=== PATIENT | female | born 1940 | race Caucasian/White ===

== ENCOUNTER → 2016-04-06 | Outpatient (REF) | payer OTHER ==
[2016-04-06 11:38] LABS: MEAN CORPUSCULAR HEMOGLOBIN 31.9 pg (27.0-33.0); MEAN CORPUSCULAR HGB CONC 34.8 g/dl (32.0-36.5); MEAN CORPUSCULAR VOLUME 91.9 fl (80.0-96.0); RED CELL DISTRIBUTION WIDTH 12.6 % (11.5-14.5); WHITE BLOOD COUNT 5.5 K/mm3 (4.0-10.0)
[2016-04-06 11:47] LABS: VITAMIN B12 LEVEL 385 PG/ML (247-911)
[2016-04-06 12:06] LABS: ALBUMIN 3.9 GM/DL (3.2-5.2); ALBUMIN/GLOBULIN RATIO 1.63 (1.00-1.93); ALKALINE PHOSPHATASE 57 U/L (45-117); ALT/SGPT 16 U/L (12-78); ANION GAP 7 MEQ/L (8-16); AST/SGOT 15 U/L (15-37); BILIRUBIN,TOTAL 0.5 MG/DL (0.2-1.0); BLOOD UREA NITROGEN 13 MG/DL (7-18); CALCIUM LEVEL 8.6 MG/DL (8.8-10.2); CARBON DIOXIDE LEVEL 28 MEQ/L (21-32); CHLORIDE LEVEL 108 MEQ/L (98-107); CHOLESTEROL LEVEL 228 MG/DL (<200); CREATININE FOR GFR 0.72 MG/DL (0.55-1.02); GLOMERULAR FILTRATION RATE > 60.0 (>39); GLUCOSE, FASTING 103 MG/DL (83-110); POTASSIUM SERUM 3.8 MEQ/L (3.5-5.1); SODIUM LEVEL 143 MEQ/L (136-145); TOTAL PROTEIN 6.3 GM/DL (6.4-8.2); TRIGLYCERIDES LEVEL 97 MG/DL (<150)
== END ==
LOC: M LABDRAWC 11:19
PROVIDERS: ATTEND Family Medicine
DX: E55.9 Vitamin D deficiency, unspecified (principal); E53.8 Deficiency of other specified B group vitamins; Z79.899 Other long term (current) drug therapy

== ENCOUNTER 2016-08-11 19:32 | Emergency (ER) | payer OTHER ==
[~2016-08-11] VITALS: Ht 160 cm; Wt 61.3 kg
[2016-08-11 19:33] VITALS: BP_DIAS 88
[2016-08-11] MEDS ORDERED: RANI150T (19:56)
[2016-08-11] MEDS ORDERED: CO Q10CA PO (19:56)
[2016-08-11] MEDS ORDERED: LORA10CA PO (19:56)
--- NOTE | 2016-08-11 20:49 | REP ---
Clinical: Trauma. Technique: AP and lateral and bilateral oblique views of the left foot. Findings: Diffuse osteopenia and degenerative changes are appreciated. Oblique image 3 of 4 demonstrates a very subtle fracture at the base of the fifth metatarsal bone with overlying soft tissue swelling. Clinical correlation is recommended. No other fracture or dislocation identified. Impression: Very subtle fracture at the base of the fifth metatarsal bone. Underlying diffuse osteopenia and degenerative changes. Signed by Gaudencio Mohr MD 08/11/2016 08:41 P
--- NOTE | 2016-08-11 20:51 | REP ---
Clinical: Trauma. Technique: Cephalic angled, caudal angled, and lateral views of the sacrum and coccyx. Findings: Osteopenia and degenerative changes are appreciated. No definite acute fracture or subluxation. Impression: No definite acute fracture or subluxation appreciated. Signed by Gaudencio Mohr MD 08/11/2016 08:43 P
[2016-08-11] MEDS ORDERED: HYDR-3713 PO (21:15)
[2016-08-11] MEDS ORDERED: NORCO 5/325MG TABLET (BULK FOR ED) PO ONE (21:15)
[2016-08-11 21:37] VITALS: BP_SYST 150
== END 2016-08-11 21:38 | disposition home or self-care (01) ==
LOC: M ED 19:32
DX: S00.93XA Contusion of unspecified part of head, initial encounter (principal); S30.0XXA Contusion of lower back and pelvis, initial encounter; S92.352A Displaced fracture of fifth metatarsal bone, left foot, initial encounter for closed fracture; G89.29 Other chronic pain; W01.0XXA Fall on same level from slipping, tripping and stumbling without subsequent striking against object, initial encounter; Y92.018 Other place in single-family (private) house as the place of occurrence of the external cause; Y99.9 Unspecified external cause status; Y93.9 Activity, unspecified; Z88.2 Allergy status to sulfonamides; Z79.899 Other long term (current) drug therapy

== ENCOUNTER → 2017-02-08 | Outpatient (REF) | payer OTHER ==
[2017-02-08 18:01] LABS: IMMUNOGLOBULIN G 528 MG/DL (681-1648)
[2017-02-13 14:21] LABS: IgG SERUM (part of Subclasses) 506 mg/dL (700-1600); IgG Subclass 1 238 mg/dL (248-810); IgG Subclass 2 79 mg/dL (130-555); IgG Subclass 3 4 mg/dL (15-102); IgG Subclass 4 13 mg/dL (2-96)
== END ==
LOC: M LABDRAW1 16:43
DX: D47.2 Monoclonal gammopathy (principal); D80.1 Nonfamilial hypogammaglobulinemia
CPT/HCPCS: 82784

== ENCOUNTER 2019-01-17 12:26 | Emergency (ER) | payer MEDICARE, OTHER ==
[~2019-01-17] VITALS: Ht 160 cm; Wt 61.4 kg
[~2019-01-17 12:26] MED LIST: CO Q10CA PO; HYDR-3713 PO; LORA10CA PO; RANI150T
[2019-01-17] MEDS ORDERED: FAMO1TAB11 (12:51)
[2019-01-17] MEDS ORDERED: VITA500054 PO (12:53)
[2019-01-17] MEDS ORDERED: ASPI81TA85 PO (12:53)
[2019-01-17] MEDS ORDERED: REDCAP4 PO (12:53)
[2019-01-17] MEDS ORDERED: ADVI100T PO (12:53)
[2019-01-17] MEDS ORDERED: BIOT1CAP2 PO (12:55)
[2019-01-17 13:08] LABS: BASO % 0.4 % (0.0-1.0); EOS # 0.2 10^3/uL (0.0-0.5); EOS % 2.8 % (0.0-3.0); HEMOGLOBIN 13.8 g/dl (12.0-15.5); LYMPH # 1.7 10^3/uL (1.5-5.0); LYMPH % 22.9 % (24.0-44.0); MEAN CORPUSCULAR HEMOGLOBIN 31.4 pg (27.0-33.0); MEAN CORPUSCULAR HGB CONC 33.7 g/dl (32.0-36.5); MEAN CORPUSCULAR VOLUME 93.4 fl (80.0-96.0); MONO # 0.4 10^3/uL (0.0-0.8); MONO % 5.5 % (0.0-5.0); NEUTROPHILS # 5.1 10^3/uL (1.5-8.5); PLATELET COUNT, AUTOMATED 218 10^3/uL (150-450); RED BLOOD COUNT 4.39 10^6/uL (4.00-5.40); WHITE BLOOD COUNT 7.5 10^3/uL (4.0-10.0)
--- NOTE | 2019-01-17 13:28 | ECGEPIP ---
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
[2019-01-17 13:32] LABS: ALT/SGPT 23 U/L (12-78); BILIRUBIN,DIRECT 0.1 MG/DL (0.0-0.2); BILIRUBIN,TOTAL 0.4 MG/DL (0.2-1.0); BLOOD UREA NITROGEN 11 MG/DL (7-18); CALCIUM LEVEL 9.1 MG/DL (8.8-10.2); CARBON DIOXIDE LEVEL 26 MEQ/L (21-32); CHLORIDE LEVEL 104 MEQ/L (98-107); CK-MB VALUE MASS 1.8 NG/ML (<3.6); CPK CREATINE PHOSPHOKINASE 52 U/L (26-192); GLOMERULAR FILTRATION RATE > 60.0 (>39); GLUCOSE, FASTING 98 MG/DL (70-100); INR 0.97; MB/CK RELATIVE INDEX 3.46 (< OR =4); POTASSIUM SERUM 3.8 MEQ/L (3.5-5.1); PROTHROMBIN TIME 12.6 SECONDS (11.8-14.0); SODIUM LEVEL 139 MEQ/L (136-145); TOTAL PROTEIN 6.6 GM/DL (6.4-8.2); TROPONIN I < 0.02 NG/ML (< 0.10)
[2019-01-17 13:35] LABS: D-DIMER QUANT 1197.19 ng/ml (<500)
[2019-01-17] MEDS ORDERED: ISOVUE-370 76% 100ML VIAL (Q9967) As Ordered ONE (14:03)
--- NOTE | 2019-01-17 14:15 | REP ---
CHEST PA AND LATERAL: 01/17/2019. CLINICAL HISTORY: Dyspnea. COMPARISON: Only by report, chest radiograph 06/16/2014 at a closed urgent care facility. It describes right greater than left apical pleuroparenchymal scarring. FINDINGS: The lung cee are hyperinflated with some flattening of diaphragm, prominent retrosternal clear space, and some pectus excavatum chest wall configuration. CP angles are sharply defined on the frontal view. There is no definite consolidation or effusion. There is no lateral pleural thickening. There is apical pleuroparenchymal scarring bilaterally, right greater than left. Heart is not enlarged. The aorta is mildly tortuous. The airway is intact. There is pulmonary artery hypertension, likely secondary to COPD. Bony thorax shows demineralization but no acute compression deformity. There are degenerative changes of the shoulders and AC joints. Prior surgical change right shoulder with multiple screws in the humeral head, compression sideplate. IMPRESSION: 1. Hyperinflation with COPD. Some pulmonary artery hypertension and apical pleuroparenchymal scarring, right greater than left. 2. Some minor interstitial fibrotic changes. No cardiomegaly or edema. 3. Demineralization with some degenerative changes spine and shoulders. Electronically Signed by Jericho Castillo MD 01/17/2019 07:58 P
[2019-01-17 14:45] VITALS: BP 133/61
[2019-01-17] MEDS ORDERED: PROV108A INH (14:48)
--- NOTE | 2019-01-17 15:00 | REP ---
CT ANGIOGRAM CHEST: 01/17/2019. COMPARISON: Chest x-ray 01/17/2019. CLINICAL HISTORY: Dyspnea, evaluate for PE or other. TECHNIQUE: Bolus of 75 mL Isovue-370 scanning through the chest with pulmonary angiogram technique and with both coronal and sagittal standard and MIP reformats reviewed. FINDINGS: Lung cee show some minor basilar fibrotic changes and dependent atelectatic change. I see no pleural effusion, calcified pleural plaque, or pleural thickening in the lower lung zones. There is apical and lateral upper chest pleural thickening and pleural parenchymal scar similar to the chest x-ray. I do not see dense consolidation. No pneumothorax, pneumomediastinum. Heart size grossly intact, but the left atrium is mildly prominent. The aorta is without aneurysm or dissection. It has a few calcifications in the arch. Great vessels off the arch show some calcifications but were unremarkable. The main, right and left pulmonary arteries in the mediastinum are without filling defects. The lobar, segmental, and visible subsegmental pulmonary arteries are also intact and without filling defect or vessel cutoff. No pathologic-sized mediastinal or hilar adenopathy nor mass. There is a subcarinal node about 9 mm as the largest mediastinal node, none of these are a centimeter or larger. The airway intact. Bone windows show the sternum, manubrium, medial clavicles, scapulae, and ribs without acute findings. There is evidence of an old plate and screw fixation in the proximal humeral neck and head. Spine shows no compression deformity or destructive lesion. Upper abdomen shows liver and spleen are not enlarged. There are multiple small hypodense nodules in the right lobe of the liver, CT attenuation values in the single digits and consistent with cysts. The largest of these is 12 mm. There is no ascites. Gallbladder seen only in part but without calcified stone in the visible part. The pancreas section visible is also unremarkable. There is no hiatal hernia. Adrenal glands and upper poles kidneys intact. IMPRESSION: 1. There is no CT evidence for pulmonary thromboembolism. 2. COPD and evidence of apical pleuroparenchymal scarring bilaterally. 3. There no effusion, nodule, or mass. 4. No aortic aneurysm or dissection. 5. Multiple simple cysts in the right hepatic lobe, but the upper abdomen otherwise grossly unremarkable. Electronically Signed by Jericho Castillo MD 01/17/2019 08:00 P
== END 2019-01-17 14:59 | disposition home or self-care (01) ==
LOC: M ED 12:26
DX: J44.9 Chronic obstructive pulmonary disease, unspecified (principal); K76.89 Other specified diseases of liver; R06.00 Dyspnea, unspecified; I27.20 Pulmonary hypertension, unspecified; R94.31 Abnormal electrocardiogram [ECG] [EKG]; Z88.2 Allergy status to sulfonamides; Z79.51 Long term (current) use of inhaled steroids; Z79.82 Long term (current) use of aspirin; Z79.899 Other long term (current) drug therapy
CPT/HCPCS: 36415; 71046; 71275; 80048; 80076; 82550; 82553; 84484; 85025; 85379; 85610; 93005; 93041; 94760; 99285; Q9967

== ENCOUNTER → 2020-03-23 | Outpatient (REF) | payer MEDICARE, OTHER ==
[~2020-03-23] MED LIST changes: +ADVI100T PO; +ASPI81TA86 PO; +BIOT1CAP2 PO; +FAMO1TAB11; +PROV108A INH; +REDCAP4 PO; +VITA500054 PO
== END ==
LOC: M SFHCWAGY 15:19
PROVIDERS: ATTEND Advanced Practice Midwife
DX: Z12.4 Encounter for screening for malignant neoplasm of cervix (principal); R10.2 Pelvic and perineal pain; N95.0 Postmenopausal bleeding; N95.2 Postmenopausal atrophic vaginitis
CPT/HCPCS: 87086; 87624; G0123; G0463

== ENCOUNTER → 2020-05-06 | Outpatient (CLI) | payer MEDICARE ==
--- NOTE | 2020-05-06 16:35 | DEXAMM ---
INDICATION: SCREENING FOR OSTEOPOROSIS. COMPARISON: 07/04/2015, 01/07/2006. TECHNIQUE: Bone density was measured using dual-energy x-ray absorptiometry (DEXA). FINDINGS: AP SPINE L1-L4 BMD 1.067 g/cm2 Young Adult T-Score -1.0 Age Matched Z-Score 0.8. LT FEMUR, TOTAL BMD 0.738 g/cm2 Young Adult T-Score -2.1 Age Matched Z-Score -0.3. LT NECK BMD 0.819 g/cm2 Young Adult T-Score -1.6 Age Matched Z-Score 0.5. RT FEMUR, TOTAL BMD 0.674 g/cm2 Young Adult T-Score -2.6 Age Matched Z-Score -0.8. RT NECK BMD 0.759 g/cm2 Young Adult T-Score -2.0 Age Matched Z-Score 0.0. IMPRESSION: There is low bone density of the spine. There is low bone density of the left hip. There is low bone density of the right hip. The density of the spine has decreased 2.0% since the initial exam on 01/07/2006. The density of the spine increased 10.3% since most recent exam on 07/04/2015. The density of the left hip has decreased 10.3% since initial exam on 01/07/2006. The density of the left hip has decreased 8.3% since most recent exam on 07/04/2015. The density of the right hip has decreased 12.4% since the initial exam on 01/07/2006. The density of the right hip has decreased 12.5% since the most recent exam on 07/04/2015. FOLLOW-UP: Recommendation for the next bone density exam: 2 years. <Electronically signed by Guido Ritchie > 05/06/20 [id number]
== END ==
LOC: M WHC 14:11
PROVIDERS: ATTEND Family Medicine
DX: Z78.0 Asymptomatic menopausal state (principal); Z13.820 Encounter for screening for osteoporosis

== ENCOUNTER 2020-10-28 09:44 | Observation (INO) | payer MEDICARE ==
[~2020-10-28] VITALS: Ht 160 cm; Wt 62.5 kg
[~2020-10-28 09:44] MED LIST changes: +ATORVASTATIN 10 MG TAB PO SCH; -FAMO1TAB11; +FAMO1TAB11 PO
[2020-10-28] MEDS ORDERED: NS 500 ML IV ONE (10:20)
--- NOTE | 2020-10-28 10:45 | REPVR ---
PROCEDURE INFORMATION: Exam: CT Head Without Contrast Exam date and time: 10/28/2020 10:16 AM Age: 80 years old Clinical indication: Syncope and collapse TECHNIQUE: Imaging protocol: Computed tomography of the head without contrast. Radiation optimization: All CT scans at this facility use at least one of these dose optimization techniques: automated exposure control; mA and/or kV adjustment per patient size (includes targeted exams where dose is matched to clinical indication); or iterative reconstruction. COMPARISON: No relevant prior studies available. FINDINGS: Brain: There is no acute intracranial abnormality.Mild small vessel ischemic changes are seen. There is no mass, midline shift, or mass effect. Ritchie-white matter differentiation is preserved. There is no evidence of hemorrhage. There is no extra-axial fluid collection. Basal cisterns are patent. Cerebral ventricles: Mild prominence of ventricles and sulci representing volume loss. Paranasal sinuses: Visualized sinuses demonstrate moderate opacification in left sphenoid sinus. Mastoid air cells: Mastoid air cells are clear. Bones/joints: The visualized osseous structures are unremarkable. Soft tissues: Unremarkable. IMPRESSION: 1. Mild volume loss and small vessel ischemic changes. 2. No acute intracranial abnormality. Electronically signed by: Rabia Adams On 10/28/2020 10:44:55 AM
--- NOTE | 2020-10-28 10:53 | REP ---
INDICATION: Syncope/near-syncope. COMPARISON: 01/17/2019. TECHNIQUE: Single portable AP view of the chest was performed. FINDINGS: There is no acute infiltrate or pulmonary edema. Lungs are clear. The heart is not significantly enlarged. The mediastinal silhouette is unremarkable. The visualized osseous structures are intact. IMPRESSION: No acute pulmonary disease. <Electronically signed by Guido Ritchie > 10/28/20 [id number]
--- NOTE | 2020-10-28 10:58 | REPVR ---
PROCEDURE INFORMATION: Exam: CT Cervical Spine Without Contrast Exam date and time: 10/28/2020 10:16 AM Age: 80 years old Clinical indication: Other: Syncope TECHNIQUE: Imaging protocol: Computed tomography images of the cervical spine without contrast. Radiation optimization: All CT scans at this facility use at least one of these dose optimization techniques: automated exposure control; mA and/or kV adjustment per patient size (includes targeted exams where dose is matched to clinical indication); or iterative reconstruction. COMPARISON: CT ANGIO CHEST 01/17/2019 2:05 PM FINDINGS: Bones/joints: No acute fracture. 2 mm anterolisthiasis of C4 on C5 and 2.6 mm anterolisthiasis of C5 on C6. Multilevel DJD. Right silveira curve of cervical spine. Discs/Spinal canal/Neural foramina: No significant disc protrusion. No severe spinal canal stenosis. Thyroid: 27 mm nodule in the right lobe of thyroid gland. Lungs: Biapical scarring. Soft tissues: Unremarkable. IMPRESSION: No acute fracture. COMMENTS: Consistent with the [employer]'s Incidental Findings Committee white paper (J Am Blanca Radiol 2015): In patients aged 35 years and older with an incidental thyroid nodule equal to or greater than 1.[address], MRI or extrathyroidal US, further evaluation with dedicated thyroid US is recommended for patients with normal life expectancy and without comorbidities. For smaller nodules without suspicious features, no further evaluation or follow up is recommended. Electronically signed by: Rabia Adams On 10/28/2020 10:58:30 AM
[2020-10-28 11:17] LABS: BASO % 0.5 % (0.0-1.0); EOS % 0.2 % (0.0-3.0); HEMATOCRIT 40.7 % (36.0-47.0); HEMOGLOBIN 13.8 g/dl (12.0-15.5); LYMPH # 0.5 10^3/uL (1.5-5.0); LYMPH % 8.7 % (24.0-44.0); MEAN CORPUSCULAR HEMOGLOBIN 31.3 pg (27.0-33.0); MEAN CORPUSCULAR HGB CONC 33.9 g/dl (32.0-36.5); MEAN CORPUSCULAR VOLUME 92.3 fl (80.0-96.0); MONO # 0.5 10^3/uL (0.0-0.8); NEUTROPHILS # 4.6 10^3/uL (1.5-8.5); NEUTROPHILS % 82.2 % (36.0-66.0); PLATELET COUNT, AUTOMATED 209 10^3/uL (150-450); RED BLOOD COUNT 4.41 10^6/uL (4.00-5.40); WHITE BLOOD COUNT 5.6 10^3/uL (4.0-10.0)
[2020-10-28 11:19] LABS: INR 0.94
[2020-10-28] MEDS ORDERED: ACET500T15 PO (11:19)
[2020-10-28] MEDS ORDERED: LORA-674 PO (11:19)
[2020-10-28] MEDS ORDERED: ASPI81TA26 PO (11:19)
[2020-10-28] MEDS ORDERED: ATOR1TAB19 PO (11:19)
[2020-10-28] MEDS ORDERED: COLA100C5 PO (11:19)
[2020-10-28] MEDS ORDERED: NATU1TAB5 PO (11:19)
[2020-10-28] MEDS ORDERED: IBUP200T45 PO (11:19)
[2020-10-28 11:20] LABS: PARTIAL THROMBOPLASTIN TIME 28.9 SECONDS (25.9-37.0)
[2020-10-28] MEDS ORDERED: HOME MED LIST COMPLETE! XX SCH (11:20)
[2020-10-28 11:37] LABS: BLOOD UREA NITROGEN 7 MG/DL (7-18); CARBON DIOXIDE LEVEL 26 MEQ/L (21-32); CHLORIDE LEVEL 104 MEQ/L (98-107); CK-MB VALUE MASS 1.2 NG/ML (<3.6); CPK CREATINE PHOSPHOKINASE 40 U/L (26-192); CREATININE FOR GFR 0.58 MG/DL (0.55-1.30); FREE T4 1.14 NG/DL (0.76-1.46); GLOMERULAR FILTRATION RATE > 60.0 (>39); GLUCOSE, FASTING 106 MG/DL (70-100); MAGNESIUM LEVEL 1.9 MG/DL (1.8-2.4); POTASSIUM SERUM 3.6 MEQ/L (3.5-5.1); SODIUM LEVEL 137 MEQ/L (136-145); THYROID STIMULATING HORMONE 0.813 uIU/ML (0.358-3.740); TROPONIN I < 0.02 NG/ML (< 0.10)
[2020-10-28 11:37] LABS: RSV AMPLIFICATION NEGATIVE (NEGATIVE)
[2020-10-28] MEDS ORDERED: NS 1,000 ML IV ONE (11:45)
--- NOTE | 2020-10-28 12:15 | REP ---
INDICATION: fall COMPARISON: None. TECHNIQUE: Four views right ankle. FINDINGS: There is no evidence of acute fracture, dislocation, or intrinsic bone disease.There is diffuse osteopenia. The ankle mortise is anatomic. IMPRESSION: No fracture or dislocation. <Electronically signed by Guido Ritchie > 10/28/20 [id number]
--- NOTE | 2020-10-28 12:24 | REP ---
INDICATION: fall COMPARISON: None. TECHNIQUE: Four views right foot. FINDINGS: There is no evidence of acute fracture, dislocation, or intrinsic bone disease.There is diffuse osteopenia. IMPRESSION: No fracture or dislocation. <Electronically signed by Guido Ritchie > 10/28/20 [id number]
[2020-10-28] MEDS ORDERED: ONDANSETRON 4MG/2ML VIAL IV PRN (12:30)
[2020-10-28] MEDS ORDERED: MAALOX 30 ML SUSP *UDC PO PRN (12:30)
--- NOTE | 2020-10-28 12:50 | HPEPDOC ---
[facility] Medical History & Physical Date of Admission Oct 28, 2020 Date of Service: Oct 28, 2020 Primary Care Physician: STEVEN HOLLY M.D. Attending Physician: ANDRE JOYCE DO History and Physical CHIEF COMPLAINT: Syncope and diarrhea HISTORY OF PRESENT ILLNESS: Patient is a 80-year-old female who presented to the emergency department today after syncopized seeing around 5 AM. Patient states that she was in using the bathroom urinating and started feeling nauseous. Patient sat on the toilet for a few minutes and started feeling better. Patient states that she stood up from the toilet and began to walk towards her bedroom when she collapsed. Patient does not know how long she is on the ground for but says it was probably only a few minutes. Patient does not remember being on the ground very long but does remember coming to. Patient got up and walked back to bed. Patient began feeling very ill and was complaining of body aches. Patient states that she had about 6 episodes of brown watery, nonmucousy and nonbloody, diarrhea on the morning of 10/27/2020. Patient states that she did have a normal bowel movement this morning prior to coming into the hospital. Patient states that she came in because she was feeling very tired and achy. Patient denies any head injury but does states she has a headache. Patient also states that she is doing otherwise well. Patient was able to get up and use the bedside commode in the emergency department with minimal difficulty. Patient denies any neck pain. Patient only states that her toe hurts which did not hurt prior to her collapsing. Patient is otherwise doing well. PAST MEDICAL HISTORY: 1. Hereditary neuropathy. PAST SURGICAL HISTORY: 1. Left shoulder surgery after injury. 2. hysterectomy. SOCIAL HISTORY: Patient denies smoking cigarettes or using illicit drug use. Patient does drink a glass of wine a day. 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 FAMILY HISTORY: Patient may have a family history of hereditary neuropathy but she is unsure. Mother had Alzheimer's ALLERGIES: Please see below. REVIEW OF SYSTEMS: General: Patient denies fevers HEENT: Patient denies headaches Cardiovascular: Patient denies chest pain Respiratory: Patient denies shortness of breath, cough GI: Patient reports diarrhea and nausea as above. Patient denies vomiting and abdominal pain : Patient denies increased frequency or pain with urination Extremities: Patient denies swelling or pain in extremities Neurological: Patient reports chronic neuropathy in her feet bilaterally Skin: Patient denies any new rashes or lesions. Hematologic: Patient denies any easy bruising. Lymphatic: Patient denies any lumps lumps or bumps in neck, axilla, or groin HOME MEDICATIONS: Please see below. PHYSICAL EXAMINATION: VITAL SIGNS: Temperature 98.9, pulse 89, respiratory rate 18, blood pressure 121/56, pulse oximetry 98% on room air. General: Alert and oriented female patient who was laying in bed when I walked in. Patient did appear fatigued but did not appear to be in any acute distress. HEENT: Normocephalic, atraumatic, moist mucous membranes. Neck: No lymphadenopathy or thyromegaly Cardiac: Regular rate and rhythm, no murmurs, normal S1, normal S2 Pulm: Clear to auscultation bilaterally. No wheezes, rhonchi, rales Abd: Nondistended, nontender to palpation, normal bowel sounds Ext: No edema bilateral lower extremities Neuro: Patient was able to move all 4 extremities on command and reported equal sensation light touch in all 4 extremities. Skin: Skin of the head, neck, upper and lower extremities was examined did not show any evidence of rash or wounds. LABORATORY DATA: See below. IMAGING: CT scan of the cervical spine without contrast from 10/28/2020 is reported to show no acute fracture. Chest x-ray performed on 10/28/2020 was aborted show no acute pulmonary disease. CT scan of the head performed without contrast on 10/28/2020 is reported to show mild volume loss and small vessel ischemic changes. No acute intracranial abnormality. Right ankle x-ray performed on 10/28/2020 is reported to show no fracture or dislocation. Right foot x-ray performed on 10/28/2020 is reported to show no fracture dislocation. MICROBIOLOGY: Please see below. ASSESSMENT: 80-year-old female who presented to the hospital after passing out after 6+ episodes of watery diarrhea the day before prior to coming to the hospital will be admitted for syncope. . PLAN: 1. Syncope. Based on the patient's history, this sounds like orthostatic hypotension. Patient's blood pressure has been normal. Patient did receive fluids in the emergency department and we will advance the patient's diet as tolerated. We will perform echocardiogram as well as keep the patient on telemetry. EKG showed normal sinus rhythm. Patient just feels very achy today. We will continue to monitor the patient. 2. Diarrhea. It appears that the patient had a normal bowel movement this morning prior to come to the hospital however, if the patient has diarrhea, we will obtain GI panel. The patient has normal bowel movement, this order can be canceled. This may be the reason why patient became dehydrated and syncopized but we will continue to monitor. 3. Hereditary neuropathy. Patient states she sees a neurologist in [place] who diagnosed her with hereditary neuropathy. Patient states she is not on any treatment for this. 4. Hyperlipidemia. We will continue the patient's home atorvastatin. 5. GERD. Continue patient's home famotidine. 6. DVT prophylaxis: Lovenox 7. CODE STATUS: Full code Disposition: Patient will be placed on medical surgical floor with telemetry for under observation. Vital Signs Vital Signs Date Time Temp Pulse Resp B/P (MAP) Pulse Ox O2 Delivery O2 Flow Rate FiO2 10/28/20 11:55 98.9 10/28/20 10:45 89 121/56 (77) 98 Room Air 10/28/20 10:15 18 Laboratory Data Labs 24H Laboratory Tests 2 10/28/20 09:44: Immature Granulocyte % (Auto) 0.4, Neutrophils (%) (Auto) 82.2H, Lymphocytes (%) (Auto) 8.7L, Monocytes (%) (Auto) 8.0, Eosinophils (%) (Auto) 0.2, Basophils (%) (Auto) 0.5, Neutrophils # (Auto) 4.6, Lymphocytes # (Auto) 0.5L, Monocytes # (Auto) 0.5, Eosinophils # (Auto) 0.0, Basophils # (Auto) 0.0, Nucleated Red Blood Cells % (auto) 0.0, Anion Gap 7L, Glomerular Filtration Rate > 60.0, Lactic Acid Level 0.7, Calcium Level 9.0, Magnesium Level 1.9, Total Creatine Kinase 40, Creatine Kinase MB 1.2, Creatine Kinase MB Relative Index 3.00, Trop onin I < 0.02, Thyroid Stimulating Hormone (TSH) 0.813, Free Thyroxine 1.14 10/28/20 10:30: Prothrombin Time 13.0, Prothromb Time International Ratio 0.94, Activated Partial Thromboplast Time 28.9 10/28/20 10:50: Coronavirus (COVID-19)(PCR) NEGATIVE, Influenza Type A (RT-PCR) NEGATIVE, Influenza Type B (RT-PCR) NEGATIVE, Respiratory Syncytial Virus (PCR) NEGATIVE CBC/BMP Laboratory Tests 10/28/20 09:44 Home Medications Scheduled Aspirin (Aspirin EC) 81 Mg Tablet.dr, 81 MG PO DAILY Atorvastatin Calcium (Atorvastatin Calcium) 10 Mg Tablet, 10 MG PO 3XW MON/SAT/SAT, NEW MED Biotin (Biotin) 1 Mg Capsule, 1 MG PO DAILY Cholecalciferol (Vitamin D3) (Vitamin D3) 125 Mcg Tablet, 125 MCG PO DAILY Docusate Sodium (Colace) 100 Mg Capsule, 100 MG PO QHS Famotidine (Famotidine) 20 Mg Tablet, 20 MG PO QHS Loratadine (Loratadine) 10 Mg Tablet, 10 MG PO DAILY Ubidecarenone (Co Q-10) 10 Mg Cap, 10 MG PO DAILY Scheduled PRN Acetaminophen (Acetaminophen) 500 Mg Tablet, 500 MG PO Q6H PRN for PAIN LEVEL 1- 4 Ibuprofen (Ibu-200) 200 Mg Tablet, 400 MG PO Q8H PRN for PAIN LEVEL 1-4 Allergies Coded Allergies: Sulfa (Sulfonamide Antibiotics) (Verified Allergy, Mild, FACIAL SWELLING, ITCH, 10/28/20) A-FIB/CHADSVASC A-FIB History Current/History of A-Fib/PAF?: No ANDRE JOYCE DO Oct 28, 2020 12:50
[2020-10-28] MEDS: ACETAMINOPHEN TAB 650MG DOSE (2X325MG) PO PRN ×2 (13:32→21:10)
[2020-10-28] MEDS: ENOXAPARIN 40MG/0.4ML SYRINGE (J1650 PER 10MG) SC SCH (17:01)
[2020-10-28] MEDS: ASPIRIN 81MG ENTERIC TABLET PO SCH (17:02)
[2020-10-28] MEDS: LORATADINE 10 MG TAB PO SCH (17:02)
[2020-10-28 19:00] VITALS: BP 133/65
[2020-10-28] MEDS ORDERED: FAMOTIDINE 20 MG TAB PO SCH (21:00)
[2020-10-28] MEDS: FLUTICASONE PROP 0.05% NASAL SPRAY 16 GM (FLONASE) NARES SCH (21:11)
[2020-10-28 22:00] VITALS: BP 139/64
--- NOTE | 2020-10-29 05:15 | ECGEPIP ---
[facility] - ED Test Date: 2020-10-28 Pat Name: JERE MCLEOD Department: Room: 02-11 Gender: Female Manager Compliance: ED : 1940 Requested By: Luz Marina Lopez Order Number: [id number] Reading MD: Danilo Villasenor Measurements Intervals [place] Rate: 87 P: 67 [place]: 174 QRS: -10 QRSD: 74 T: 57 QT: 372 QTc: 447 Interpretive Statements Normal sinus rhythm POOR R WAVE PROGRESSION Electronically Signed on 10-29-2020 5:15:19 EDT by Danilo Villasenor
[2020-10-29 06:00] VITALS: BP 134/63
[2020-10-29 06:43] LABS: HEMATOCRIT 33.1 % (36.0-47.0); MEAN CORPUSCULAR HGB CONC 34.4 g/dl (32.0-36.5); PLATELET COUNT, AUTOMATED 166 10^3/uL (150-450); RED BLOOD COUNT 3.56 10^6/uL (4.00-5.40); WHITE BLOOD COUNT 4.2 10^3/uL (4.0-10.0)
[2020-10-29 06:44] LABS: HEMOGLOBIN 11.4 g/dl (12.0-15.5)
[2020-10-29 06:59] LABS: BLOOD UREA NITROGEN 5 MG/DL (7-18); CALCIUM LEVEL 8.2 MG/DL (8.8-10.2); CARBON DIOXIDE LEVEL 27 MEQ/L (21-32); CHLORIDE LEVEL 108 MEQ/L (98-107); CREATININE FOR GFR 0.51 MG/DL (0.55-1.30); GLOMERULAR FILTRATION RATE > 60.0 (>39); GLUCOSE, FASTING 99 MG/DL (70-100); MAGNESIUM LEVEL 1.8 MG/DL (1.8-2.4); POTASSIUM SERUM 3.2 MEQ/L (3.5-5.1); SODIUM LEVEL 141 MEQ/L (136-145)
[2020-10-29 07:42] VITALS: BP_SYST 132; BP_SYST 146; BP_SYST 151; BP_DIAS 60; BP_DIAS 63; BP_DIAS 67
[2020-10-29] MEDS: POTASSIUM CHLORIDE 10MEQ SR TABLET PO SCH ×2 (09:50→12:08)
[2020-10-29] MEDS: FLUTICASONE PROP 0.05% NASAL SPRAY 16 GM (FLONASE) NARES SCH (09:50)
[2020-10-29] MEDS: LORATADINE 10 MG TAB PO SCH (09:50)
[2020-10-29] MEDS: ASPIRIN 81MG ENTERIC TABLET PO SCH (09:50)
[2020-10-29] MEDS: ENOXAPARIN 40MG/0.4ML SYRINGE (J1650 PER 10MG) SC SCH (09:52)
[2020-10-29] MEDS: ACETAMINOPHEN TAB 650MG DOSE (2X325MG) PO PRN (09:53)
--- NOTE | 2020-10-29 15:14 | DS.PDOC ---
Discharge Summary General Date of Admission Oct 28, 2020 at 09:45 Date of Discharge 10/29/2020 Primary Care Physician: STEVEN HOLLY M.D. Attending Physician: ANDRE JOYCE DO Discharge Summary PROCEDURES PERFORMED DURING STAY: None. ADMITTING DIAGNOSES: 1. Syncope. 2. Diarrhea 3. Hereditary neuropathy 4. Hyperlipidemia 5. GERD DISCHARGE DIAGNOSES: 1. Syncope, improved 2. Diarrhea, resolved 3. Hereditary neuropathy 4. Hyperlipidemia 5. GERD COMPLICATIONS/CHIEF COMPLAINT: Diarrhea, Syncope. HISTORY OF PRESENT ILLNESS: Patient is a 80-year-old female who presented to the emergency department today after syncopized seeing around 5 AM. Patient states that she was in using the bathroom urinating and started feeling nauseous. Patient sat on the toilet for a few minutes and started feeling better. Patient states that she stood up from the toilet and began to walk towards her bedroom when she collapsed. Patient does not know how long she is on the ground for but says it was probably only a few minutes. Patient does not remember being on the ground very long but does remember coming to. Patient got up and walked back to bed. Patient began feeling very ill and was complaining of body aches. Patient states that she had about 6 episodes of brown watery, nonmucousy and nonbloody, diarrhea on the morning of 10/27/2020. Patient states that she did have a normal bowel movement this morning prior to coming into the hospital. Patient states that she came in because she was feeling very tired and achy. Patient denies any head injury but does states she has a headache. Patient also states that she is doing otherwise well. Patient was able to get up and use the bedside commode in the emergency department with minimal difficulty. Patient denies any neck pain. Patient only states that her toe hurts which did not hurt prior to her collapsing. Patient is otherwise doing well. HOSPITAL COURSE: Patient was feeling better today and stated that she felt like she is ready to go home. Patient did not have any episodes of syncope or diarrhea overnight. Patient was just awaiting her echocardiogram which was performed and we are still awaiting the read. I did advise the patient to use saline nasal spray as she feels like she may have a sinus infection. If the patient continues to have upper respiratory-like symptoms, patient may need to be tested for COVID-19 as the patient was exposed to a positive relative. Patient had a negative Covid test here in the hospital on the day of admission when she was having the sinus congestion as well. Patient was deemed ready for discharge and was discharged home on 10/29/2020. DISCHARGE MEDICATIONS: Please see below. ALLERGIES: Please see below. PHYSICAL EXAMINATION ON DISCHARGE: VITAL SIGNS: Please see below. General: Alert and oriented female patient was sitting up in bed when I walked in the room. Patient not appear to be in any acute distress. HEENT: Normocephalic, atraumatic, moist mucous membranes. Neck: No lymphadenopathy or thyromegaly Cardiac: Regular rate and rhythm, no murmurs, normal S1, normal S2 Pulm: Clear to auscultation bilaterally. No wheezes, rhonchi, rales Abd: Nondistended, nontender to palpation, normal bowel sounds Ext: No edema bilateral lower extremities LABORATORY DATA: Please see below. IMAGING: CT scan of the cervical spine without contrast from 10/28/2020 is reported to show no acute fracture. Chest x-ray performed on 10/28/2020 was aborted show no acute pulmonary disease. CT scan of the head performed without contrast on 10/28/2020 is reported to show mild volume loss and small vessel ischemic changes. No acute intracranial abnormality. Right ankle x-ray performed on 10/28/2020 is reported to show no fracture or dislocation. Right foot x-ray performed on 10/28/2020 is reported to show no fracture dislocation. PROGNOSIS: Good ACTIVITY: As tolerated. DIET: Regular DISCHARGE PLAN: Discharge home DISPOSITION: 01-Home, self-care DISCHARGE INSTRUCTIONS: 1. Follow-up with your primary care provider within 3 to 5 days of discharge. 2. Use saline nasal spray to clean out your nasal passages then use fluticasone 3. Return the emergency department if your symptoms worsen ITEMS TO FOLLOWUP ON ON OUTPATIENT: 1. Echocardiogram report. DISCHARGE CONDITION: Stable. TIME SPENT ON DISCHARGE: 25 minutes. Vital Signs/I&Os Vital Signs Date Time Temp Pulse Resp B/P (MAP) Pulse Ox O2 Delivery O2 Flow Rate FiO2 10/29/20 07:42 76 132/60 (84) 78 151/63 (92) 72 146/67 (93) 10/29/20 06:00 99.1 18 93 Room Air I&O- Last 24 Hours up to 6 AM 10/29/20 06:00 Intake Total 2360 ml Output Total 1325 ml Balance 1035 ml Laboratory Data Labs 24H Laboratory Tests 2 10/29/20 06:19: Nucleated Red Blood Cells % (auto) 0.0, Anion Gap 6L, Glomerular Filtration Rate > 60.0, Calcium Level 8.2L, Magnesium Level 1.8 CBC/BMP Laboratory Tests 10/29/20 06:19 Discharge Medications Scheduled Aspirin (Aspirin EC) 81 Mg Tablet.dr, 81 MG PO DAILY, (Reported) Atorvastatin Calcium (Atorvastatin Calcium) 10 Mg Tablet, 10 MG PO 3XW, (Reported) SAT/SAT/SAT, NEW MED Biotin (Biotin) 1 Mg Capsule, 1 MG PO DAILY, (Reported) Cholecalciferol (Vitamin D3) (Vitamin D3) 125 Mcg Tablet, 125 MCG PO DAILY, (Reported) Docusate Sodium (Colace) 100 Mg Capsule, 100 MG PO QHS, (Reported) Famotidine (Famotidine) 20 Mg Tablet, 20 MG PO QHS, (Reported) Loratadine (Loratadine) 10 Mg Tablet, 10 MG PO DAILY, (Reported) Ubidecarenone (Co Q-10) 10 Mg Cap, 10 MG PO DAILY, (Reported) Scheduled PRN Acetaminophen (Acetaminophen) 500 Mg Tablet, 500 MG PO Q6H PRN for PAIN LEVEL 1- 4, (Reported) Ibuprofen (Ibu-200) 200 Mg Tablet, 400 MG PO Q8H PRN for PAIN LEVEL 1-4, (Reported) Allergies Coded Allergies: Sulfa (Sulfonamide Antibiotics) (Verified Allergy, Mild, FACIAL SWELLING, ITCH, 10/28/20) ANDRE JOYCE DO Oct 29, 2020 15:14
--- NOTE | 2020-10-30 10:47 | ECHO ---
ECHOCARDIOGRAM DATE OF PROCEDURE: 10/29/2020 Age: Gender: Female Height: Weight: REFERRING PHYSICIAN: Santy Franklin D.O. INDICATION: Syncope. MEASUREMENTS: LV 3.8 cm IVS 0.9 cm LVPW 0.8 cm Left atrium 2.3 cm Aorta 2.9 Mitral E wave velocity 91 A wave 76 E prime septal 9.4 E prime lateral 7.7 FINDINGS: This study is of good technical quality. Patient is in sinus rhythm with narrow QRS complex. Left ventricle has normal size and normal systolic function with estimated ejection fraction (EF) around 65%. No segmental wall motion abnormalities are noted. Right ventricle also appears grossly normal. Both atria appear normal. Aortic valve is tricuspid and has normal mobility. There are mild sclerotic abnormalities. Mitral and tricuspid valves appear normal. Pulmonic valve was poorly visualized, but grossly appears normal. No pericardial effusion was noted. Inferior vena cava appropriately collapses with inspiration. Aortic root, aortic arch and visualized segment of abdominal aorta all appear normal. Doppler interrogation of the aortic valve reveals no stenosis and trace insufficiency. There is mild mitral and mild tricuspid insufficiency. Calculated pulmonary artery pressure within normal limits. Mitral inflow pattern and tissue Doppler imaging of mitral annulus reveal normal left ventricular diastolic function. CONCLUSIONS: 1. Study is of good technical quality. Underlying sinus rhythm. 2. Normal left ventricular (LV) size with normal LV systolic and diastolic function. 3. Normal right ventricular (RV) size and systolic function. 4. Trivial aortic insufficiency. 5. Mild mitral and tricuspid insufficiency. 6. Normal central venous pressure. Normal pulmonary artery pressure. 7. No findings to explain syncopal event. [facility]
== END 2020-10-29 15:10 | disposition home or self-care (01) ==
LOC: EDBD 09:44 → M ED 09:44 → M ED INP 09:45 → ENRESERV 16:30 → M MSPAV 18:46
PROVIDERS: ADMIT Family Medicine; ATTEND Family Medicine
DX: R55 Syncope and collapse (principal); R19.7 Diarrhea, unspecified; G60.9 Hereditary and idiopathic neuropathy, unspecified; E78.5 Hyperlipidemia, unspecified; K21.9 Gastro-esophageal reflux disease without esophagitis; Z79.899 Other long term (current) drug therapy; Z79.82 Long term (current) use of aspirin; Z88.2 Allergy status to sulfonamides
CPT/HCPCS: 36415; 70450; 71045; 72125; 73610; 73630; 80048; 82550; 82553; 83605; 83735; 84439; 84443; 84484; 85025; 85027; 85610; 85730; 87631; 93005; 93041; 93306; 94760; 96360; 96361; 96372; 97116; 97161; 97530; 99285; G0378; J1650

== ENCOUNTER → 2021-03-29 | Outpatient (CLI) | payer MEDICARE ==
[~2021-03-29] MED LIST changes: +ACET500T15 PO; +ASPI81TA26 PO; +ATOR1TAB19 PO; -ATORVASTATIN 10 MG TAB PO SCH; +COLA100C5 PO; +IBUP200T46 PO; +LORA-674 PO; +NATU1TAB5 PO
== END ==
LOC: M RAD 12:34
PROVIDERS: ATTEND Family Medicine
DX: E04.1 Nontoxic single thyroid nodule (principal)

== ENCOUNTER → 2021-04-27 | Outpatient (REF) | payer MEDICARE | LOC: M LAB REF 17:27 | PROVIDERS: ATTEND Physician Assistant Medical | DX: R19.7 Diarrhea, unspecified (principal) ==

== ENCOUNTER → 2021-05-12 | Outpatient (CLI) | payer MEDICARE ==
[~2021-05-12] MED LIST changes: +GASTROGRAFIN SOLUTION 30ML (Q9963) ONE; +ISOVUE-370 76% 100ML VIAL ONE
== END ==
LOC: M PLAIMG 11:06
PROVIDERS: ATTEND Family Medicine
DX: R10.9 Unspecified abdominal pain (principal); R19.7 Diarrhea, unspecified
CPT/HCPCS: 74178; Q9963; Q9967

== ENCOUNTER → 2021-11-14 | Outpatient (REF) | payer MEDICARE ==
[~2021-11-14] MED LIST changes: +ALBU6.7H6 INH; -GASTROGRAFIN SOLUTION 30ML (Q9963) ONE; -ISOVUE-370 76% 100ML VIAL ONE; -PROV108A INH
== END ==
LOC: M LAB REF 17:21
PROVIDERS: ATTEND Internal Medicine Endocrinology, Diabetes & Metabolism
DX: E04.2 Nontoxic multinodular goiter (principal)

== ENCOUNTER → 2021-12-27 | Outpatient (REF) | payer MEDICARE ==
[2021-12-27 18:44] LABS: FOLATE 15.4 NG/ML (>5.4)
== END ==
LOC: M LAB REF 16:22
PROVIDERS: ATTEND Family Medicine
DX: E53.8 Deficiency of other specified B group vitamins (principal)

== ENCOUNTER → 2022-05-09 | Outpatient (CLI) | payer MEDICARE | LOC: M WHC 12:25 | PROVIDERS: ATTEND Obstetrics & Gynecology | DX: Z12.31 Encounter for screening mammogram for malignant neoplasm of breast (principal) ==

== ENCOUNTER → 2022-06-21 | Outpatient (REF) | payer MEDICARE | LOC: M LAB REF 16:23 | PROVIDERS: ATTEND Family Medicine | DX: G62.9 Polyneuropathy, unspecified (principal) ==

== ENCOUNTER → 2022-09-26 | Outpatient (REF) | payer MEDICARE | LOC: M LAB REF 16:17 | PROVIDERS: ATTEND Family Medicine | DX: G62.9 Polyneuropathy, unspecified (principal) ==

== ENCOUNTER → 2022-12-31 | Outpatient (REF) | payer MEDICARE ==
[~2022-12-31] MED LIST changes: +LORA-1041 PO; -LORA-674 PO
== END ==
LOC: M LAB REF 18:36
PROVIDERS: ATTEND Family Medicine
DX: E53.8 Deficiency of other specified B group vitamins (principal); G60.0 Hereditary motor and sensory neuropathy

== ENCOUNTER → 2023-03-05 | Outpatient (CLI) | payer MEDICARE | LOC: M RAD 11:52 | PROVIDERS: ATTEND Family Medicine | DX: N83.202 Unspecified ovarian cyst, left side (principal) ==

== ENCOUNTER 2023-05-06 10:04 | Day surgery (SDC) | payer MEDICARE ==
[~2023-05-06] VITALS: Ht 160 cm; Wt 59.9 kg
[~2023-05-06 10:04] MED LIST changes: +LR 1,000 ML IV SCH; +MIDAZOLAM INJ 2MG/2ML VIAL As Ordered ONE; +fentaNYL 100 MCG/2 ML INJECTION As Ordered ONE
[2023-05-06] MEDS: TETRACAINE 0.5% OPHTH SOLN 4ML OS SCH (13:51)
[2023-05-06] MEDS: PHENYLEPHRINE 2.5% OPHTH SOL 2ML OS SCH (13:51)
[2023-05-06] MEDS: FLURBIPROFEN 0.03% OPHTH SOLN 2.5 ML OS SCH (13:51)
[2023-05-06] MEDS: ATROPINE SULFATE 1% OPHTH SOLN 2ML BTL OS SCH (13:51)
[2023-05-06] MEDS ORDERED: DUOVISC (0.50ML VISCOAT/0.85ML PROVISC) OPHTH KIT As Ordered ONE (15:59)
[2023-05-06] MEDS: CEFUROXIME 1MG/0.1ML INTRACAMERAL INJ As Ordered ONE (16:14)
[2023-05-06] MEDS: LIDOCAINE 1% SDV 5ML VIAL As Ordered ONE (16:14)
[2023-05-06 16:32] VITALS: BP 167/70; TEMP 97.1; O2SAT 98
== END 2023-05-06 17:02 | disposition home or self-care (01) ==
LOC: M SDC 10:04
PROVIDERS: ATTEND Ophthalmology
DX: H25.12 Age-related nuclear cataract, left eye (principal); H40.10X2 Unspecified open-angle glaucoma, moderate stage; E78.5 Hyperlipidemia, unspecified; Z79.899 Other long term (current) drug therapy; Z88.2 Allergy status to sulfonamides; Z90.710 Acquired absence of both cervix and uterus
CPT/HCPCS: 66991; J0697; J2250; J3010; V2632

== ENCOUNTER 2023-06-03 09:13 | Day surgery (SDC) | payer MEDICARE ==
[~2023-06-03] VITALS: Ht 160 cm; Wt 60.8 kg
[~2023-06-03 09:13] MED LIST changes: +DUOVISC (0.50ML VISCOAT/0.85ML PROVISC) OPHTH KIT As Ordered ONE
[2023-06-03] MEDS: FLURBIPROFEN 0.03% OPHTH SOLN 2.5 ML OD SCH (09:38)
[2023-06-03] MEDS: TETRACAINE 0.5% OPHTH SOLN 4ML OD SCH (09:38)
[2023-06-03] MEDS: PHENYLEPHRINE 2.5% OPHTH SOL 2ML OD SCH (09:38)
[2023-06-03] MEDS: ATROPINE SULFATE 1% OPHTH SOLN 2ML BTL OD SCH (09:38)
[2023-06-03] MEDS: LIDOCAINE 1% SDV 5ML VIAL As Ordered ONE (11:14)
[2023-06-03] MEDS: CEFUROXIME 1MG/0.1ML INTRACAMERAL INJ As Ordered ONE (11:22)
[2023-06-03] MEDS ORDERED: ONDANSETRON 4MG 2ML VIAL As Ordered ONE (11:35)
[2023-06-03 11:39] VITALS: BP 136/67; TEMP 97.5; O2SAT 99
[2023-06-03] MEDS: ACETAMINOPHEN TAB 650MG DOSE (2X325MG) PO ONE (11:56)
== END 2023-06-03 13:12 | disposition home or self-care (01) ==
LOC: M SDC 09:13
PROVIDERS: ATTEND Ophthalmology
DX: H25.11 Age-related nuclear cataract, right eye (principal); H40.10X2 Unspecified open-angle glaucoma, moderate stage; G60.9 Hereditary and idiopathic neuropathy, unspecified; Z85.828 Personal history of other malignant neoplasm of skin; Z79.899 Other long term (current) drug therapy; Z79.82 Long term (current) use of aspirin; Z88.2 Allergy status to sulfonamides; Z90.710 Acquired absence of both cervix and uterus; E78.00 Pure hypercholesterolemia, unspecified; K21.9 Gastro-esophageal reflux disease without esophagitis
CPT/HCPCS: 66991; C1783; J0697; J2250; J2405; J3010; V2632

== ENCOUNTER → 2023-09-05 | Outpatient (CLI) | payer MEDICARE ==
[~2023-09-05] MED LIST changes: -DUOVISC (0.50ML VISCOAT/0.85ML PROVISC) OPHTH KIT As Ordered ONE; -LR 1,000 ML IV SCH; -MIDAZOLAM INJ 2MG/2ML VIAL As Ordered ONE; -fentaNYL 100 MCG/2 ML INJECTION As Ordered ONE
== END ==
LOC: M CARPUL 14:06
PROVIDERS: ATTEND Family Medicine
DX: R55 Syncope and collapse (principal)

== ENCOUNTER 2024-02-19 08:43 | Day surgery (SDC) | payer MEDICARE ==
[~2024-02-19] VITALS: Ht 160 cm; Wt 60.3 kg
[~2024-02-19 08:43] MED LIST changes: +CO Q100C10 PO; +COQ1200C3 PO; +D3 S1CAP3 PO; +LEXA5TAB13 PO; +VENTAER INH
[2024-02-19] MEDS ORDERED: propofoL 200 MG/20 ML VIAL As Ordered ONE (10:28)
[2024-02-19 10:35] VITALS: TEMP 96.9
[2024-02-19 11:05] VITALS: BP 170/74; O2SAT 97
== END 2024-02-19 11:23 | disposition home or self-care (01) ==
LOC: M OPP 08:43
PROVIDERS: ATTEND Internal Medicine Gastroenterology
DX: D12.2 Benign neoplasm of ascending colon (principal); K57.30 Diverticulosis of large intestine without perforation or abscess without bleeding; R10.30 Lower abdominal pain, unspecified; R19.4 Change in bowel habit; K64.0 First degree hemorrhoids